=== PATIENT | female | born 1995 | race Caucasian/White ===

== ENCOUNTER 2017-05-16 20:01 | Emergency (ER) | payer OTHER ==
[~2017-05-16] VITALS: Ht 175.3 cm; Wt 99.8 kg
[~2017-05-16 20:01] MED LIST: ACETAMINOPHEN500 MG PO; ALBU90OI INH; AZIT250 PO; DIPATR PO; HYDACE5 PO; IBUP600 PO; ONDA4ODT MM; PROC10 PO; Zofran Odt4 MG PO
== END 2017-05-16 21:51 | disposition home or self-care (01) ==
LOC: ER 20:01
DX: S93.402A Sprain of unspecified ligament of left ankle, initial encounter (principal); F17.200 Nicotine dependence, unspecified, uncomplicated; V00.131A Fall from skateboard, initial encounter
CPT/HCPCS: 29515; 73610; 99283; L1906

== ENCOUNTER 2017-07-31 16:10 | Emergency (ER) | payer OTHER ==
[~2017-07-31] VITALS: Ht 172.7 cm; Wt 95.2 kg
[2017-07-31] MEDS ORDERED: Bactrim Ds Tab1 EACH PO (17:27)
[2017-07-31] MEDS ORDERED: CEPH500 PO (17:27)
== END 2017-07-31 17:38 | disposition home or self-care (01) ==
LOC: ER 16:10
DX: L03.116 Cellulitis of left lower limb (principal); F17.200 Nicotine dependence, unspecified, uncomplicated
CPT/HCPCS: 99283

== ENCOUNTER → 2017-11-03 | Outpatient (CLI) | payer OTHER ==
[~2017-11-03] MED LIST changes: +Bactrim Ds Tab1 EACH PO; +CEPH500 PO
== END ==
LOC: LAB 15:15 → LAB SHORT 15:15
DX: R21 Rash and other nonspecific skin eruption (principal)
CPT/HCPCS: 87070; 87075; 87147; 87205

== ENCOUNTER 2018-11-12 18:09 | Emergency (ER) | payer OTHER ==
[~2018-11-12] VITALS: Ht 175.3 cm; Wt 104.3 kg
[2018-11-12 19:10] LABS: BASOPHILS ABSOLUTE AUTO 0.03 K/mm3 (0.00-0.23); BASOPHILS PERCENT AUTO 0 % (0-2); EOSINOPHILS PERCENT AUTO 1 % (0-6); Hematocrit 42.7 % (33.0-51.0); Hemoglobin 14.4 g/dL (11.5-16.0); IMMATURE GRAN ABSOLUTE AUTO 0.01 K/mm3 (0.00-0.10); IMMATURE GRAN PERCENT AUTO 0 % (0-1); LYMPHOCYTES PERCENT AUTO 28 % (21-46); MONOCYTES ABSOLUTE AUTO 0.58 K/mm3 (0.16-1.47); MONOCYTES PERCENT AUTO 8 % (4-13); Mean Corpuscular HGB 31.3 pg (26.0-34.0); Mean Corpuscular HGB Conc 33.7 g/dL (31.5-36.5); Mean Corpuscular Volume 93 fL (80-100); Mean Platelet Volume 11.1 fL (9.1-12.4); NEUTROPHILS ABSOLUTE AUTO 4.84 K/mm3 (1.96-9.15); NEUTROPHILS PERCENT AUTO 62 % (41-73); Platelet Count 265 K/mm3 (150-400); RDW Coefficient Variation 12.2 % (11.7-14.2); RDW Standard Deviation 41.9 fL (35.1-46.3); White Blood Cell Count 7.76 K/mm3 (4.00-11.30)
[2018-11-12 19:17] LABS: Source, Urine Clean Catch
[2018-11-12 19:17] LABS: Alanine Aminotransfer (ALT/SGP 106 U/L (12-78); Albumin, Blood 3.7 g/dL (3.4-5.0); Albumin/Globulin Ratio 0.9 (0.8-1.8); Alk Phos 81 U/L (50-136); Anion Gap 6 mmol/L (6-16); Aspartate Aminotrans (AST/SGOT 78 U/L (12-37); Bilirubin, Total 0.6 mg/dL (0.1-1.0); Blood Urea Nitrogen 10 mg/dL (8-24); Bun/Creatinine Ratio 15.2 (12.0-20.0); CO2, Blood 21 mmol/L (21-32); Calcium, Blood 8.8 mg/dL (8.5-10.1); Chloride, Blood 111 mmol/L (98-108); Creatinine, Blood 0.66 mg/dL (0.40-1.00); Globulin, Blood 4.2 g/dL (2.2-4.0); Glomerular Filtration Rate >60 (60-); Glucose, Blood 105 mg/dL (70-99); Potassium, Blood 4.2 mmol/L (3.5-5.5); Sodium, Blood 138 mmol/L (136-145); Total Protein, Blood 7.9 g/dL (6.4-8.2)
[2018-11-12 19:23] LABS: Blood, Urine Neg (Neg); Glucose Qualitative, Urine Neg (Neg); Ketones, Urine 1+ (Neg); Leukocyte Esterase, Urine 2+ (Neg); Nitrite, Urine Neg (Neg); Protein, Urine 1+ (Neg); Urobilinogen, Urine 2+ (Normal)
[2018-11-12 19:35] LABS: Appearance, Urine Cloudy (Clear); Bilirubin, Urine 1+ (Neg); Color, Urine Yellow (P-Yellow)
[2018-11-12 19:36] LABS: Squamous Epithelial Cells Many /hpf (Few)
[2018-11-12 19:37] LABS: Bacteria Mod /hpf; Calcium Oxalate Crystals Few /hpf; Red Blood Cells, Urine 0-2 /hpf (0-2)
[2018-11-12] MEDS ORDERED: Zofran8 MG PO (23:32)
[2018-11-12] MEDS ORDERED: LOPE2C PO (23:32)
== END 2018-11-13 00:15 | disposition home or self-care (01) ==
LOC: ER 18:09
PROVIDERS: Physician Assistant
DX: R19.7 Diarrhea, unspecified (principal); R11.2 Nausea with vomiting, unspecified; F17.200 Nicotine dependence, unspecified, uncomplicated
CPT/HCPCS: 36415; 76705; 80053; 81001; 81025; 83690; 85025; 87086; 96361; 96374; 96376; 99284-25; A9270-GY; J2405; J7030; J7120

== ENCOUNTER → 2019-01-28 | Outpatient (CLI) | payer OTHER ==
[~2019-01-28] MED LIST changes: +LOPE2C PO; +Zofran8 MG PO
== END | disposition home or self-care (01) ==
LOC: LAB 16:44 → LAB SHORT 16:44
DX: R30.0 Dysuria (principal)
CPT/HCPCS: 87077; 87086; 87186

== ENCOUNTER 2021-01-29 09:03 | Emergency (ER) | payer OTHER ==
[~2021-01-29] VITALS: Ht 175.3 cm; Wt 81.7 kg
[~2021-01-29 09:03] MED LIST changes: +CEFD300 PO; +Flagyl500 MG PO; +Roxicodone5 MG PO; +Sulfamethoxazo1 EAC4 PO
== END 2021-01-29 11:40 | disposition home or self-care (01) ==
LOC: ER 09:03
DX: G43.909 Migraine, unspecified, not intractable, without status migrainosus (principal); F17.200 Nicotine dependence, unspecified, uncomplicated
CPT/HCPCS: 96361; 96374; 96375; 99284-25; J0780; J1200; J1885; J7030

== ENCOUNTER → 2021-08-30 | Outpatient (CLI) | payer OTHER ==
[2021-09-01 02:08] LABS: CHLAMYDIA TRACHOMATIS, NAA Negative (Negative)
== END ==
LOC: LAB SHORT 14:39 → LAB 14:39
PROVIDERS: Registered Nurse Community Health
DX: Z11.3 Encounter for screening for infections with a predominantly sexual mode of transmission (principal)
CPT/HCPCS: 87491; 87591

== ENCOUNTER → 2021-10-18 | Outpatient (CLI) | payer OTHER ==
[2021-10-19 10:11] LABS: Candida species (DNA Probe) Negative (NEGATIVE); G. vaginalis (DNA Probe) Negative (NEGATIVE); T. vaginalis (DNA Probe) Negative (NEGATIVE)
[2021-10-20 13:11] LABS: CHLAMYDIA BY NAA Negative (Negative); GONOCOCCUS BY NAA Negative (Negative); TRICH VAG BY NAA Negative (Negative)
== END ==
LOC: LAB SHORT 14:35 → LAB 14:35
PROVIDERS: Registered Nurse Community Health
DX: Z12.4 Encounter for screening for malignant neoplasm of cervix (principal); Z72.51 High risk heterosexual behavior
CPT/HCPCS: 87480; 87491; 87510; 87591; 87660; 87661; G0123

== ENCOUNTER → 2022-08-12 | Outpatient (CLI) | payer OTHER ==
[2022-08-15 15:11] LABS: CHLAMYDIA BY NAA Negative (Negative); GONOCOCCUS BY NAA Negative (Negative); TRICH VAG BY NAA Negative (Negative)
== END | disposition home or self-care (01) ==
LOC: LAB SHORT 12:00 → LAB 12:00
PROVIDERS: Registered Nurse Community Health
DX: Z11.3 Encounter for screening for infections with a predominantly sexual mode of transmission (principal)
CPT/HCPCS: 87491; 87591; 87661

== ENCOUNTER 2024-12-30 07:10 | Day surgery (SDC) | payer OTHER ==
[~2024-12-30] VITALS: Ht 175.3 cm; Wt 102.2 kg
[~2024-12-30 07:10] MED LIST changes: +Bupivacaine 0.5% W/EPI 1:200000 SDV 30 ML Vial ONE
[2024-12-30] MEDS ORDERED: CeFAZolin Sodium 2,000 MG VIAL ONE (07:20)
[2024-12-30] MEDS ORDERED: Vitamin D1000 UNI1 (07:41)
[2024-12-30] MEDS ORDERED: MAGNESIUM GLYC100 MG (07:42)
[2024-12-30] MEDS ORDERED: FentaNYL Citrate 50 MCG/ML 2 ML Injection ONE ×2 (07:55→10:14)
[2024-12-30] MEDS ORDERED: Dexamethasone Sod Phos 10 MG/ML 1ML VIAL ONE (07:56)
[2024-12-30] MEDS ORDERED: Ondansetron HCl 2 MG / ML 2ML Vial ONE ×2 (07:56→10:06)
[2024-12-30] MEDS ORDERED: Rocuronium Bromide 10 MG/ML 5ML Injection IV ONE (07:56)
--- NOTE | 2024-12-30 08:04 | NUR ---
12/30/24 0804 Teena Smith PT STATES IN PREOP THAT SHE DOES HAVE A SHELLFISH ALLERGY THAT CAUSES HER TO HAVE N/V AND DIARRHEA. PT STATES SHE IS ABLE TO HAVE TOPICAL IODINE ON HER SKIN.
[2024-12-30] MEDS ORDERED: Midazolam HCl 1MG / ML 2ML Vial ONE (08:29)
[2024-12-30] MEDS ORDERED: Sugammadex Sodium 200 MG/2ML SDV (100 MG/ML) ONE ×2 (08:46→09:34)
[2024-12-30] MEDS ORDERED: Bupivacaine 0.5% W/EPI 1:200000 SDV 30 ML Vial INJ ONE ×2 (09:05)
--- NOTE | 2024-12-30 09:07 | NUR ---
12/30/24 0907 Arabella Mcguire ABDOMINAL PREPPED BY TMG WITH DURAPREP, NATHALIE AREA PREPPED WITH BETADINE SOLUTION BY LOUIS
--- NOTE | 2024-12-30 10:09 | NUR ---
12/30/24 Masha Ruelas PT TO PACU, SPITS OPA OUT SSHORTLY AFTER REPORT GIVEN. 2 ABD SITES CLOSED W DERMABOND, NATHALIE PAD DRY AND INTACT SHAKING, TEMP WNL, C/O NAUSEA
[2024-12-30] MEDS ORDERED: HYDROmorphone HCl/Pf 1MG SYR ONE (10:33)
[2024-12-30] MEDS ORDERED: Metoclopramide HCl 5MG / ML 2ML Vial ONE (10:41)
--- NOTE | 2024-12-30 10:53 | NUR ---
12/30/24 1053 Masha Martinez CONTINUED TO ADMIN PAIN MEDS AND ANTI-EMETICS IN STEPDOWN. TOLERATING ICE CHIPS.
[2024-12-30 11:41] VITALS: BP 111/77
== END 2024-12-30 11:51 | disposition home or self-care (01) ==
LOC: ORSCSDS 07:10
PROVIDERS: Obstetrics & Gynecology
PROC: 0UB74ZZ Excision of Bilateral Fallopian Tubes, Percutaneous Endoscopic Approach (ICD-10-PCS; principal; 2024-12-30 08:30)
PROC: 0U544ZZ Destruction of Uterine Supporting Structure, Percutaneous Endoscopic Approach (ICD-10-PCS; principal; 2024-12-30 08:30)
DX: Z30.2 Encounter for sterilization (principal); Q50.5 Embryonic cyst of broad ligament; N80.3C3 Endometriosis of bilateral uterosacral ligament(s), unspecified depth; E66.9 Obesity, unspecified; Z68.33 Body mass index [BMI] 33.0-33.9, adult
CPT/HCPCS: 88302; J0690; J1100; J1171; J2250; J2405; J2704; J2765; J3010; J7120

== ENCOUNTER → 2025-02-24 | Outpatient (CLI) | payer OTHER ==
[~2025-02-24] MED LIST changes: -Bupivacaine 0.5% W/EPI 1:200000 SDV 30 ML Vial ONE; +MAGNESIUM GLYC100 MG; +Vitamin D1000 UNI1
[2025-02-24 18:18] LABS: Alanine Aminotransfer (ALT/SGP 50.0 U/L (12-78); Albumin, Blood 3.9 g/dL (3.4-5.0); Albumin/Globulin Ratio 1.0 (0.8-1.8); Anion Gap 9.0 mmol/L (3-11); Aspartate Aminotrans (AST/SGOT 27.0 U/L (12-37); Bilirubin, Total 0.4 mg/dL (0.1-1.0); Blood Urea Nitrogen 13.0 mg/dL (8-24); CO2, Blood 25.0 mmol/L (21-32); Calcium, Blood 8.9 mg/dL (8.5-10.1); Chloride, Blood 107.0 mmol/L (98-108); Creatinine, Blood 0.65 mg/dL (0.40-1.00); Ferritin, Serum 10.0 ng/mL (8-252); Globulin, Blood 3.9 g/dL (2.2-4.0); Glucose, Blood 93.0 mg/dL (70-99); Potassium, Blood 3.8 mmol/L (3.5-5.5); Sodium, Blood 137.0 mmol/L (136-145); Total Iron Binding Capacity 389.0 ug/dL (250-450); Total Protein, Blood 7.8 g/dL (6.4-8.2)
== END ==
LOC: LAB 14:18 → LAB SHORT 14:18
DX: E55.9 Vitamin D deficiency, unspecified (principal); E66.9 Obesity, unspecified; Z86.2 Personal history of diseases of the blood and blood-forming organs and certain disorders involving the immune mechanism
CPT/HCPCS: 80053; 82306; 82728; 83540; 83550